=== PATIENT | female | born 1985 | race Two or more races ===

== ENCOUNTER 2021-06-17 08:19 | Inpatient (IN) | payer MEDICAID ==
[~2021-06-17] VITALS: Ht 165.1 cm; Wt 97.3 kg
[2021-06-17] MEDS ORDERED: normal saline 1000ml 1,000 ML IV ONE ×2 (08:35→13:30)
[2021-06-17] MEDS ORDERED: levetiracetam inj 1,000 MG in normal saline 100ml IV soln 90 ML IV ONE (08:35)
[2021-06-17 11:10] LABS: BASOPHILS # (AUTO) 0.1 X10'3 (0-0.2); BASOPHILS % (AUTO) 0.4 % (0-1); EOSINOPHILS % (AUTO) 0 % (0-6); HEMATOCRIT 41.9 % (35.0-45.0); HEMOGLOBIN 14.2 g/dl (12.0-16.0); LYMPHOCYTES # (AUTO) 1.8 X10'3 (1.1-4.8); LYMPHOCYTES % (AUTO) 9.4 % (21-51); MEAN CORPUSCULAR HEMOGLOBIN 29.7 PG (27.0-31.0); MEAN CORPUSCULAR HGB CONC 33.9 g/dL (33.0-36.5); MEAN CORPUSCULAR VOLUME 87.6 FL (78-98); MEAN PLATELET VOLUME 8.2 FL (7.4-10.4); MONOCYTES # (AUTO) 0.8 X10'3 (0-0.9); MONOCYTES % (AUTO) 3.9 % (2-12); NEUTROPHILS # (AUTO) 16.6 X10'3 (1.8-7.7); NEUTROPHILS % (AUTO) 86.3 % (42-75); PLATELET COUNT 330 X10'3 (140-440); RED BLOOD COUNT 4.78 X10'6 (4.20-5.60); RED CELL DISTRIBUTION WIDTH 13.6 % (11.5-14.5); WHITE BLOOD COUNT 19.2 X10'3 (4.5-11.0)
[2021-06-17 11:23] LABS: ALANINE AMINOTRANSFERASE 23 U/L (12-78); ALBUMIN 3.9 G/DL (3.4-5.0); ALKALINE PHOSPHATASE 62 IU/L (46-116); ANION GAP 12 (8-16); ASPARTATE AMINO TRANSFERASE 15 U/L (10-37); BILIRUBIN,TOTAL 0.5 MG/DL (0.1-1.0); BLOOD UREA NITROGEN 23 MG/DL (7-18); BUN/CREATININE RATIO 29.5 (6.6-38.0); CALCIUM 9.1 MG/DL (8.5-10.1); CHLORIDE 108 MMOL/L (99-107); CREATININE 0.78 MG/DL (0.40-0.90); GLUCOSE 130 MG/DL (70-104); SODIUM 143 MMOL/L (135-145); TOTAL PROTEIN 7.9 G/DL (6.4-8.2); eGFR 84 ML/MIN
[2021-06-17 11:24] LABS: POTASSIUM 3.7 MMOL/L (3.5-5.1)
[2021-06-17] MEDS ORDERED: CefTRIAXone 2gm/D5W 50ml BAG 50 ML IV ONE (11:25)
[2021-06-17] MEDS ORDERED: LORazepam 2 mg/ml vial IV ONE ×3 (11:25→15:20)
[2021-06-17] MEDS ORDERED: ketorolac trometh. 30mg/ml inj. IV ONE (11:25)
[2021-06-17 11:33] LABS: BETA HCG,QUANTITATIVE < 1.0 mIU/ml; MAGNESIUM 2.1 MG/DL (1.5-2.4)
[2021-06-17] MEDS ORDERED: vancomycin/NS 1 GM ADD-VANTAGE 250 ML X 1 DOSE IV ONE (12:25)
[2021-06-17 12:42] LABS: CLARITY,URINE SLIGHTLY CLOUDY (Clear); COLOR,URINE YELLOW (Yellow); GLUCOSE, URINE NEGATIVE (Neg); KETONES,URINE TRACE mg/dl (Neg); LEUKOCYTE ESTERASE ,URINE NEGATIVE (Neg); NITRITES, URINE NEGATIVE (Neg); OCCULT BLOOD,URINE NEGATIVE (Neg); PH,URINE 6.5 (4.8-8.0); PROTEIN,URINE TRACE mg/dl (Neg); UROBILINOGEN,URINE 0.2 E.U/dL (0.2-1.0)
[2021-06-17 12:43] LABS: UA COLLECTION TYPE STRAIGHT CATH
[2021-06-17 12:45] LABS: URINE HCG NEGATIVE (NEG)
[2021-06-17 12:50] LABS: URINE AMPHETAMINE SCREEN POSITIVE (Neg); URINE BARBITUATE SCREEN NEGATIVE (Neg); URINE BENZODIAZEPINES SCREEN POSITIVE (Neg); URINE CANNABINOID SCREEN NEGATIVE (Neg); URINE COCAINE SCREEN NEGATIVE (Neg); URINE METHADONE SCREEN NEGATIVE (Neg); URINE OPIATE SCREEN NEGATIVE (Neg); URINE PHENCYCLIDINE SCREEN NEGATIVE (Neg)
[2021-06-17] MEDS ORDERED: buprenorphine/naloxone 8MG-2MG SUBlingual film SL SCH (12:52)
[2021-06-17 12:54] LABS: BACTERIA,URINE FEW /HPF (Neg); COARSE GRANULAR CAST 0-3 /LPF (NEGATIVE); MUCUS STRANDS MANY /LPF (Neg); RBC,URINE 0-2 /HPF (0-2); SQUAMOUS EPITHELIAL CELL,UR MANY /LPF (FEW); WBC,URINE 0-4 /HPF (0-4)
[2021-06-17] MEDS ORDERED: buprenorphine/naloxone 8MG-2MG SUBlingual film SL ONE (13:25)
[2021-06-17] MEDS ORDERED: diphenhydrAMINE 50 mg/ml inj IV ONE (14:50)
[2021-06-17] MEDS ORDERED: magnesium 2GM in 50ml NS 50 ML IV ONE (14:50)
[2021-06-17] MEDS ORDERED: haloperidol lactate 5mg/ml inj IM ONE (14:50)
--- NOTE | 2021-06-17 15:45 | NUR ---
PT CONTINUES TO HAVE NEUROLOGIC CONCERNS DESPITE MEDICATIONS AND INTERVENTIONS. DR. LARSEN AT BEDSIDE WITH RN X1 TO COMPLETE LUMBAR PUNCTURE CONSENT AND PROCEDURE. PT TOLERATED WELL. ALL TUBES X4 LABELLED AND WALKED TO LAB. PT RETURNED TO SUPINE POSITION AND INSTRUCTED TO REMAIN FLAT. NO EVIDENCE OF UNDERSTANDING. WILL MONITOR CLOSELY.
[2021-06-17] MEDS ORDERED: NORMAL SALINE IV STA ×4 (15:51→20:38)
[2021-06-17] MEDS ORDERED: ACYCLOVIR IV STA ×4 (15:51→20:38)
[2021-06-17] MEDS ORDERED: UNABLE TO OBTAIN (16:48)
[2021-06-17 17:01] LABS: GLUCOSE,CSF 86 MG/DL (40-75); TOTAL PROTEIN,CSF 80 MG/DL (15-45)
[2021-06-17] MEDS ORDERED: NO HOME MEDS (17:03)
[2021-06-17 17:20] LABS: APPEARANCE,CSF HAZY; CSF SUPERNATANT COLOR COLORLESS; CSF VOLUME 7 ML; TUBE# COUNTED 1
[2021-06-17 17:22] LABS: APPEARANCE,CSF CLEAR; CSF RBC 350 /CU MM (0); CSF SUPERNATANT COLOR COLORLESS; CSF VOLUME 7 ML; CSF WBC CT 2 /CU MM (0-5); TUBE# COUNTED 4
[2021-06-17 17:23] LABS: CSF RBC 0 /CU MM (0); CSF WBC CT 0 /CU MM (0-5)
[2021-06-17] MEDS ORDERED: potassium Cl 20 mEq SR tablet PO PRN (17:35)
[2021-06-17] MEDS ORDERED: mag hydrox/Alum hydrox/simeth 30ml oral suspension PO PRN (17:35)
[2021-06-17] MEDS ORDERED: acetaminophen 650mg rectal suppository RC PRN (17:35)
[2021-06-17] MEDS ORDERED: HYDROcodone/acetaminophen 5mg/325mg tablet PO PRN (17:35)
[2021-06-17] MEDS ORDERED: bisacodyl 10mg suppository rectal RC PRN (17:35)
[2021-06-17] MEDS ORDERED: diphenhydrAMINE 25mg capsule PO PRN (17:35)
[2021-06-17] MEDS ORDERED: potassium CL 10mEq/100ml bag 100 ML IV PRN (17:35)
[2021-06-17] MEDS ORDERED: magnesium Cl slow-release 64mg tablet PO PRN (17:35)
[2021-06-17] MEDS ORDERED: HYDROcodone/acetaminophen 10/325mg tab PO PRN (17:35)
[2021-06-17] MEDS ORDERED: acetaminophen 325mg tablet PO PRN ×2 (17:35)
[2021-06-17] MEDS ORDERED: ondansetron/PF 4mg/2ml inj IV PRN (17:35)
[2021-06-17] MEDS ORDERED: dextrose 50%-water 50ml dispensing syringe IV PRN (17:35)
[2021-06-17] MEDS ORDERED: magnesium 4gm in 100ml NS 100 ML IV PRN (17:35)
[2021-06-17] MEDS ORDERED: magnesium hydroxide 30ml (MOM) UD suspension PO PRN (17:35)
[2021-06-17] MEDS ORDERED: haloperidol lactate 5mg/ml inj IM PRN (17:35)
[2021-06-17] MEDS ORDERED: haloperidol 5mg tablet PO PRN (17:35)
[2021-06-17] MEDS ORDERED: magnesium 2GM in 50ml NS 50 ML IV PRN (17:35)
--- NOTE | 2021-06-17 18:57 | NUR ---
DR BRYANT EVALUATED PT AT BEDSIDE. I DISCUSSED PT'S OVERALL PRESENTATION WITH DR BRYANT. HE RECOMMENDS CALLING POISON CONTROL FOR POSSIBLE METHAMPHETAMINE POISONING.
--- NOTE | 2021-06-17 19:19 | NUR ---
CALLED POISON CONTROL. RECOMMENDS REPEATING EKG TO MONITOR FOR CHANGES IN QTC LEVELS. ALSO RECOMMENDS TRENDING LACTIC ACID LEVELS AND TO ORDER TYLENOL AND ASPIRIN LEVEL LABS.
--- NOTE | 2021-06-17 19:40 | NUR ---
DR CONNOR HAS EVALUATED PT;'S NEW EKG.
[2021-06-17] MEDS: K and/or MAG REPLACEMENT MC SCH (20:00)
[2021-06-17] MEDS: LORazepam 2 mg/ml vial IV PRN (20:05)
--- NOTE | 2021-06-17 20:08 | NUR ---
CALLED PHARMACY CONCERNING COMPOUNDED ACYCLOVIR I RECIEVED. THEY WILL CALL BACK TO MAKE SURE COMPOUND IS CORRECTLY DOSED.
[2021-06-17] MEDS ORDERED: acyclovir inj 900 MG in normal saline 250ml IV soln 232 ML IV STA (20:41)
--- NOTE | 2021-06-17 21:00 | NUR ---
Patient to be admitted from ER, to room PCU 3012B. I have received report from FILOMENA Matthews, who received report from DETECTIVE BOWLING ALLEY Berna, and had the opportunity to ask questions and assume patient care.
[2021-06-17 21:15] VITALS: BP 133/52
[2021-06-17] MEDS: dextrose 5%-normal saline 1,000 ML IV SCH (21:15)
--- NOTE | 2021-06-17 21:15 | NUR ---
Received pt. from ER at 2114. On admission, pt very drowsy and shaking all over, opens eyes spontaneously, answer question appropriately, moving all extremities, asking for ice chips, tolerated po well. VSS Afebrile, bed in lowest position, call light placed withion easy reach, side rails up x2, POC discussed with pt, unable to assess pt's full understanding. Nasal swab collected, and sent to lab, for MRSA screen. IVF d5 1/2NS infusing via Lt. EJ.
[2021-06-17] MEDS: VANCOmycin 1250MG/NS 250ml Bag 250 ML IV SCH (21:25)
[2021-06-17] MEDS: thiamine 100mg/ml 2ml inj. IV SCH (23:55)
[2021-06-17] MEDS: docusate sod 100mg capsule PO SCH (23:56)
[2021-06-17] MEDS: heparin, porcine 5000 units/ml vial SQ SCH (23:56)
[2021-06-17] MEDS: levetiracetam inj 1,000 MG in normal saline 100ml IV soln 90 ML IV SCH (23:57)
[2021-06-18] MEDS ORDERED: acyclovir inj 1,000 MG in normal saline 250ml IV soln 230 ML IV SCH ×2
--- NOTE | 2021-06-18 00:42 | NUR ---
Pt's Lt foot IV infiltrated Lt. EJ, not flushing , pt has Iv antibiotic to infused, IVF on hold, unable to site a new IV, retail route supervisor informed, will come and start new IV.
--- NOTE | 2021-06-18 01:15 | NUR ---
Production Sampler in pt's room to start a new IV, multiple attempts with no success. Lt. EJ removed as not in place.
[2021-06-18] MEDS: dextrose 5%-normal saline 1,000 ML IV SCH ×4 (01:35→22:17)
[2021-06-18 02:00] VITALS: BP 128/61
--- NOTE | 2021-06-18 02:36 | NUR ---
PAGER ID: [phone] MESSAGE: Sent to Dr. Swartz, RE:Villa Ricajanice Championa-[id number]. LT EJ not working, Lt foot IV infiltrated, Nursing staff and banquet houseperson Dora, made Multiple attempts to place a new IV, not successful. Pt has multiple IVPB Vanco,Acyclovir, IV Keppra, and IVF , to be given. Please advise on next plan of action.
--- NOTE | 2021-06-18 02:45 | NUR ---
Dr. Swartz called floor, states, I cannot help you, you have just told me a story, not getting an IV is not a choice for this pt, Danita Ortiz ordered all the medications, and they have to be given, I cannot order a PICC line as no one is available over the weekend to place a PICC. Call the Tie Binder again or anyone who can place the IV. CN informed. Will call Tie Binder again.
--- NOTE | 2021-06-18 02:59 | NUR ---
PAGER ID: [phone] MESSAGE: Sent to Dr. Swartz Re:Ana Molina, 3012 B, I called the Dressmaker Helper again, regarding placement of a new IV, she states, she has already made multiple attempts, and you need to call ER doctor to put a line for pt, to get all her ordered medications,
--- NOTE | 2021-06-18 03:05 | NUR ---
Dr. Swartz called PCU back, she states, she is not calling ER doctor, let Dr. Smaayoa know in the morning know in the morning,why pt dod not her her ordered IV medications. FILOMENA Matthews and Keymodule Assembly Supervisor Dora informed. FILOMENA Matthews called ER, to see if one of the ER nurses can come and put in a new IV. ROHAN Boo from ER will come.
--- NOTE | 2021-06-18 04:36 | NUR ---
Ema from ER, came to place new IV,with multiple failed attempts.
[2021-06-18 06:00] VITALS: BP 127/51
--- NOTE | 2021-06-18 06:25 | NUR ---
Problems reprioritized. Patient report given, questions answered & plan of care reviewed with RN Galo & RN Abby.Pt has no IV access,day shift RN will inform Dr. Samayoa.
[2021-06-18] MEDS ORDERED: pneumococcal 23-VAL P-sac vacc 25 mcg/0.5ml vial IMVAC ONE (06:35)
[2021-06-18] MEDS: VANCOmycin 1250MG/NS 250ml Bag 250 ML IV SCH ×2 (07:00→19:36)
[2021-06-18] MEDS: K and/or MAG REPLACEMENT MC SCH ×2 (08:00→20:00)
[2021-06-18] MEDS: heparin, porcine 5000 units/ml vial SQ SCH ×2 (08:00→19:37)
[2021-06-18] MEDS: acyclovir inj 1,000 MG in normal saline 250ml IV soln 250 ML IV SCH ×4 (08:00→16:41)
[2021-06-18] MEDS: docusate sod 100mg capsule PO SCH ×2 (08:28→19:37)
[2021-06-18] MEDS: LORazepam 2 mg/ml vial IV PRN ×2 (08:45→19:37)
--- NOTE | 2021-06-18 08:45 | NUR ---
dURING THE MED PASS TRIYING TO PUT A IV ACCESS PATIENT START WITH EPISODE OF SEIZURES. ATIVAN 2MG IM WAS ADMINISTRATED. HR ASSOCIATE WAS NOTIFIED. AFTER THREE TIMES TO TRIED TO PUT THE IV ACCESS WAS FAILED
[2021-06-18 09:00] LABS: ALANINE AMINOTRANSFERASE 33 U/L (12-78); ALBUMIN 3.8 G/DL (3.4-5.0); ALBUMIN/GLOBULIN RATIO 1.1 (1.1-1.5); ALKALINE PHOSPHATASE 57 IU/L (46-116); ANION GAP 14 (8-16); BLOOD UREA NITROGEN 19 MG/DL (7-18); BUN/CREATININE RATIO 44.2 (6.6-38.0); CALCIUM 8.8 MG/DL (8.5-10.1); CHLORIDE 110 MMOL/L (99-107); CHOL/HDL RATIO 4.1 (0.00-4.99); CHOLESTEROL 152 MG/DL (0-200); CREATININE 0.43 MG/DL (0.40-0.90); GLUCOSE 101 MG/DL (70-104); HDL CHOLESTEROL 37 MG/DL (35-60); LDL CHOLESTEROL 97 MG/DL (50-100); MAGNESIUM 2.7 MG/DL (1.5-2.4); SODIUM 145 MMOL/L (135-145); TOTAL CARBON DIOXIDE 20.8 MMOL/L (24-32); TOTAL PROTEIN 7.3 G/DL (6.4-8.2); TRIGLYCERIDES 79 MG/DL (20-135); eGFR > 90 ML/MIN
--- NOTE | 2021-06-18 09:00 | NUR ---
PATIENT PRESENT SECOND EPISODE OF SEIZURES. DR. BRYANT WAS NOTIFIED AND [facility] WAS CALLED.
[2021-06-18] MEDS: levetiracetam inj 1,000 MG in normal saline 100ml IV soln 90 ML IV SCH ×2 (09:18→20:50)
[2021-06-18 09:38] LABS: PHOSPHORUS 3.5 MG/DL (2.3-4.5); POTASSIUM 3.8 MMOL/L (3.5-5.1)
[2021-06-18 09:39] LABS: ASPARTATE AMINO TRANSFERASE 55 U/L (10-37)
[2021-06-18 10:13] LABS: BASOPHILS # (AUTO) 0.1 X10'3 (0-0.2); BASOPHILS % (AUTO) 0.6 % (0-1); EOSINOPHILS % (AUTO) 0 % (0-6); HEMATOCRIT 44.9 % (35.0-45.0); HEMOGLOBIN 14.7 g/dl (12.0-16.0); LYMPHOCYTES # (AUTO) 5.8 X10'3 (1.1-4.8); LYMPHOCYTES % (AUTO) 31.2 % (21-51); MEAN CORPUSCULAR HEMOGLOBIN 29.5 PG (27.0-31.0); MEAN CORPUSCULAR HGB CONC 32.7 g/dL (33.0-36.5); MEAN CORPUSCULAR VOLUME 90.1 FL (78-98); MEAN PLATELET VOLUME 9.5 FL (7.4-10.4); MONOCYTES # (AUTO) 1.7 X10'3 (0-0.9); MONOCYTES % (AUTO) 9.2 % (2-12); PLATELET COUNT 403 X10'3 (140-440); RED BLOOD COUNT 4.98 X10'6 (4.20-5.60); RED CELL DISTRIBUTION WIDTH 13.8 % (11.5-14.5); WHITE BLOOD COUNT 18.6 X10'3 (4.5-11.0)
[2021-06-18 11:00] VITALS: BP 118/57
[2021-06-18] MEDS: thiamine 100mg/ml 2ml inj. IV SCH ×2 (13:00→17:34)
[2021-06-18] MEDS: morphine 2 MG/ML inj. syringe IV PRN ×3 (13:02→15:33)
[2021-06-18 15:00] VITALS: BP 120/54
[2021-06-18 16:38] LABS: ACETAMINOPHEN < 2.0 UG/ML (10-30)
[2021-06-18] MEDS: folic acid 1mg/0.2ml inj IV SCH (17:34)
[2021-06-18 18:00] VITALS: BP 120/54
--- NOTE | 2021-06-18 18:21 | NUR ---
Patient in room PCU 3012. I have received report from ROHAN Mora, and had the opportunity to ask questions and assume patient care. To call ER, to remove Intra osteo IV. Pt has new central line to RT. neck. Pt stable, still shaking all over, Don to gravity drainage. IV Rocephin to be given.
--- NOTE | 2021-06-18 19:05 | NUR ---
Rocephin 1gm IV, not available on floor, message sent to Pharmacy.
[2021-06-18] MEDS: CefTRIAXone/D5W-Rocephin 1gm 50 ML IV SCH (20:00)
--- NOTE | 2021-06-18 20:00 | NUR ---
Pharmacy delivered Rocephin, to PCU, administered as per order.
[2021-06-18 22:00] VITALS: BP 132/66
--- NOTE | 2021-06-18 22:10 | NUR ---
Lt. leg IO IV removed by ROHAN Taylor, from ER.
[2021-06-19 01:30] VITALS: BP 135/62
[2021-06-19] MEDS: LORazepam 2 mg/ml vial IV PRN ×2 (01:33→05:42)
--- NOTE | 2021-06-19 01:34 | NUR ---
TYLENOL sUPP, GIVEN FOR TEMP OF 100.8, WILL CONTINUE TO MONITOR.
[2021-06-19 02:00] VITALS: BP 124/64
[2021-06-19] MEDS: thiamine 100mg/ml 2ml inj. IV SCH ×4 (02:18→20:00)
--- NOTE | 2021-06-19 02:25 | NUR ---
IV Zovirax not available in [facility],message snet to Pharmacy.
--- NOTE | 2021-06-19 02:27 | NUR ---
Called Pharmacy, will call when IV Zovirax is ready.
[2021-06-19] MEDS: acyclovir inj 1,000 MG in normal saline 250ml IV soln 250 ML IV SCH ×2 (03:40→10:47)
--- NOTE | 2021-06-19 03:41 | NUR ---
Pharmacy called PCU, that IV Zovirax is ready, Med picked up, administered as per order.
[2021-06-19 06:00] VITALS: BP 124/64
--- NOTE | 2021-06-19 06:15 | NUR ---
Pt. pulled hayes out, new hayes place, 16fr.
--- NOTE | 2021-06-19 06:25 | NUR ---
Problems reprioritized. Patient report given, questions answered & plan of care reviewed with Abby.
[2021-06-19] MEDS ORDERED: VANCOMYCIN LEVEL IV ONE (06:30)
[2021-06-19 06:35] LABS: ALANINE AMINOTRANSFERASE 32 U/L (12-78); ALBUMIN 3.4 G/DL (3.4-5.0); ALBUMIN/GLOBULIN RATIO 1.1 (1.1-1.5); ALKALINE PHOSPHATASE 49 IU/L (46-116); ANION GAP 11 (8-16); ASPARTATE AMINO TRANSFERASE 31 U/L (10-37); BILIRUBIN,TOTAL 0.9 MG/DL (0.1-1.0); BLOOD UREA NITROGEN 15 MG/DL (7-18); BUN/CREATININE RATIO 17.9 (6.6-38.0); CALCIUM 7.7 MG/DL (8.5-10.1); CHLORIDE 112 MMOL/L (99-107); CREATININE 0.84 MG/DL (0.40-0.90); GLUCOSE 107 MG/DL (70-104); MAGNESIUM 2.2 MG/DL (1.5-2.4); PHOSPHORUS 4.3 MG/DL (2.3-4.5); SODIUM 148 MMOL/L (135-145); TOTAL PROTEIN 6.5 G/DL (6.4-8.2); VANCOMYCIN,TROUGH 10.9 UG/ML (6.0-14.0); eGFR 77 ML/MIN
[2021-06-19 06:48] LABS: POTASSIUM 2.7 MMOL/L (3.5-5.1)
[2021-06-19] MEDS: K and/or MAG REPLACEMENT MC SCH ×2 (07:10→20:01)
--- NOTE | 2021-06-19 07:13 | NUR ---
Critical Kt level 2.7 this am.. Will follow potassium protocol as ordered.
[2021-06-19] MEDS: docusate sod 100mg capsule PO SCH ×2 (07:47→19:57)
[2021-06-19] MEDS: heparin, porcine 5000 units/ml vial SQ SCH ×2 (07:48→19:58)
[2021-06-19] MEDS: CefTRIAXone/D5W-Rocephin 1gm 50 ML IV SCH (07:55)
[2021-06-19] MEDS: VANCOmycin 1250MG/NS 250ml Bag 250 ML IV SCH (08:16)
[2021-06-19] MEDS: folic acid 1mg/0.2ml inj IV SCH (09:52)
[2021-06-19 11:00] VITALS: BP 115/70
[2021-06-19] MEDS: levetiracetam inj 1,000 MG in normal saline 100ml IV soln 90 ML IV SCH ×2 (12:37→20:00)
[2021-06-19 13:11] LABS: BASOPHILS # (AUTO) 0.1 X10'3 (0-0.2); BASOPHILS % (AUTO) 0.5 % (0-1); EOSINOPHILS # (AUTO) 0.2 X10'3 (0-0.9); EOSINOPHILS % (AUTO) 1.9 % (0-6); HEMATOCRIT 37.6 % (35.0-45.0); HEMOGLOBIN 12.5 g/dl (12.0-16.0); LYMPHOCYTES % (AUTO) 23.3 % (21-51); MEAN CORPUSCULAR HEMOGLOBIN 29.6 PG (27.0-31.0); MEAN CORPUSCULAR HGB CONC 33.2 g/dL (33.0-36.5); MEAN PLATELET VOLUME 9.1 FL (7.4-10.4); MONOCYTES # (AUTO) 0.9 X10'3 (0-0.9); MONOCYTES % (AUTO) 6.9 % (2-12); NEUTROPHILS # (AUTO) 8.8 X10'3 (1.8-7.7); NEUTROPHILS % (AUTO) 67.4 % (42-75); PLATELET COUNT 268 X10'3 (140-440); RED BLOOD COUNT 4.22 X10'6 (4.20-5.60); RED CELL DISTRIBUTION WIDTH 13.6 % (11.5-14.5)
[2021-06-19 15:00] VITALS: BP 125/67
[2021-06-19] MEDS ORDERED: LORazepam 1 MG tablet PO PRN (17:35)
[2021-06-19] MEDS ORDERED: LORazepam 2 mg/ml vial IV PRN (17:35)
[2021-06-19 19:02] LABS: BASOPHILS # (AUTO) 0.1 X10'3 (0-0.2); BASOPHILS % (AUTO) 0.7 % (0-1); EOSINOPHILS # (AUTO) 0.7 X10'3 (0-0.9); EOSINOPHILS % (AUTO) 5.4 % (0-6); HEMATOCRIT 37.3 % (35.0-45.0); HEMOGLOBIN 12.7 g/dl (12.0-16.0); LYMPHOCYTES # (AUTO) 3.9 X10'3 (1.1-4.8); LYMPHOCYTES % (AUTO) 30.2 % (21-51); MEAN CORPUSCULAR HEMOGLOBIN 29.9 PG (27.0-31.0); MEAN CORPUSCULAR HGB CONC 34.1 g/dL (33.0-36.5); MEAN CORPUSCULAR VOLUME 87.6 FL (78-98); MEAN PLATELET VOLUME 9.2 FL (7.4-10.4); MONOCYTES # (AUTO) 0.8 X10'3 (0-0.9); NEUTROPHILS # (AUTO) 7.4 X10'3 (1.8-7.7); NEUTROPHILS % (AUTO) 57.7 % (42-75); PLATELET COUNT 284 X10'3 (140-440); RED BLOOD COUNT 4.26 X10'6 (4.20-5.60); RED CELL DISTRIBUTION WIDTH 13.7 % (11.5-14.5); WHITE BLOOD COUNT 12.8 X10'3 (4.5-11.0)
[2021-06-19 19:05] LABS: ALANINE AMINOTRANSFERASE 32 U/L (12-78); ALBUMIN 3.3 G/DL (3.4-5.0); ALKALINE PHOSPHATASE 52 IU/L (46-116); ANION GAP 9 (8-16); ASPARTATE AMINO TRANSFERASE 24 U/L (10-37); BILIRUBIN,TOTAL 0.6 MG/DL (0.1-1.0); BLOOD UREA NITROGEN 11 MG/DL (7-18); BUN/CREATININE RATIO 12.5 (6.6-38.0); CALCIUM 8.2 MG/DL (8.5-10.1); CHLORIDE 109 MMOL/L (99-107); CREATININE 0.88 MG/DL (0.40-0.90); GLUCOSE 116 MG/DL (70-104); SODIUM 144 MMOL/L (135-145); TOTAL CARBON DIOXIDE 25.8 MMOL/L (24-32); TOTAL PROTEIN 6.6 G/DL (6.4-8.2); eGFR 73 ML/MIN
[2021-06-19 19:07] LABS: POTASSIUM 2.5 MMOL/L (3.5-5.1)
[2021-06-19] MEDS: potassium Cl 20 mEq SR tablet PO PRN (20:00)
[2021-06-19 22:00] VITALS: BP 111/65
[2021-06-20] MEDS: potassium Cl 20 mEq SR tablet PO PRN ×2 (00:26→14:59)
[2021-06-20] MEDS: dextrose 5%-normal saline 1,000 ML IV SCH ×2 (01:35→17:35)
[2021-06-20] MEDS: acyclovir inj 1,000 MG in normal saline 250ml IV soln 250 ML IV SCH ×4 (01:39→23:17)
[2021-06-20 02:00] VITALS: BP 126/66
[2021-06-20] MEDS: morphine 2 MG/ML inj. syringe IV PRN ×2 (04:29→12:41)
[2021-06-20 06:00] VITALS: BP 138/72
[2021-06-20] MEDS: heparin, porcine 5000 units/ml vial SQ SCH ×2 (08:00→20:50)
[2021-06-20] MEDS: thiamine 100mg/ml 2ml inj. IV SCH ×2 (08:00→12:14)
[2021-06-20] MEDS: docusate sod 100mg capsule PO SCH ×2 (08:00→20:50)
[2021-06-20] MEDS: folic acid 1mg/0.2ml inj IV SCH (08:00)
[2021-06-20] MEDS: levetiracetam inj 1,000 MG in normal saline 100ml IV soln 90 ML IV SCH ×2 (10:06→20:00)
[2021-06-20] MEDS: CefTRIAXone/D5W-Rocephin 1gm 50 ML IV SCH (10:07)
[2021-06-20 11:00] VITALS: BP 125/76
[2021-06-20 12:51] LABS: BASOPHILS # (AUTO) 0.1 X10'3 (0-0.2); BASOPHILS % (AUTO) 0.5 % (0-1); EOSINOPHILS # (AUTO) 0.7 X10'3 (0-0.9); EOSINOPHILS % (AUTO) 6.7 % (0-6); HEMATOCRIT 35.2 % (35.0-45.0); HEMOGLOBIN 11.9 g/dl (12.0-16.0); LYMPHOCYTES # (AUTO) 3.1 X10'3 (1.1-4.8); LYMPHOCYTES % (AUTO) 28.7 % (21-51); MEAN CORPUSCULAR HGB CONC 33.9 g/dL (33.0-36.5); MEAN CORPUSCULAR VOLUME 88.4 FL (78-98); MEAN PLATELET VOLUME 9.1 FL (7.4-10.4); MONOCYTES # (AUTO) 0.6 X10'3 (0-0.9); MONOCYTES % (AUTO) 5.5 % (2-12); NEUTROPHILS # (AUTO) 6.4 X10'3 (1.8-7.7); NEUTROPHILS % (AUTO) 58.6 % (42-75); PLATELET COUNT 252 X10'3 (140-440); RED BLOOD COUNT 3.99 X10'6 (4.20-5.60); RED CELL DISTRIBUTION WIDTH 13.5 % (11.5-14.5); WHITE BLOOD COUNT 10.8 X10'3 (4.5-11.0)
[2021-06-20 13:10] LABS: ALANINE AMINOTRANSFERASE 28 U/L (12-78); ALBUMIN 3.1 G/DL (3.4-5.0); ALKALINE PHOSPHATASE 52 IU/L (46-116); ANION GAP 10 (8-16); ASPARTATE AMINO TRANSFERASE 14 U/L (10-37); BILIRUBIN,TOTAL 0.4 MG/DL (0.1-1.0); BLOOD UREA NITROGEN 8 MG/DL (7-18); BUN/CREATININE RATIO 11.6 (6.6-38.0); CALCIUM 8.2 MG/DL (8.5-10.1); CHLORIDE 108 MMOL/L (99-107); CREATININE 0.69 MG/DL (0.40-0.90); GLUCOSE 101 MG/DL (70-104); MAGNESIUM 2.1 MG/DL (1.5-2.4); PHOSPHORUS 3.4 MG/DL (2.3-4.5); SODIUM 143 MMOL/L (135-145); TOTAL CARBON DIOXIDE 25.3 MMOL/L (24-32); TOTAL PROTEIN 6.2 G/DL (6.4-8.2); eGFR > 90 ML/MIN
[2021-06-20 13:14] LABS: POTASSIUM 2.8 MMOL/L (3.5-5.1)
--- NOTE | 2021-06-20 14:13 | NUR ---
Met with patient in regards to substance/alcohol use and to see if patient was interested in resources for treatment options. Patient declined and doesn't want help.
[2021-06-20 15:00] VITALS: BP 120/64
[2021-06-20] MEDS ORDERED: potassium Cl 20 mEq SR tablet PO PRN ×2 (20:30)
[2021-06-20] MEDS ORDERED: potassium CL 10mEq/100ml bag 100 ML IV PRN (20:30)
[2021-06-20] MEDS ORDERED: magnesium 4gm in 100ml NS 100 ML IV PRN (20:30)
[2021-06-20] MEDS ORDERED: magnesium 2GM in 50ml NS 50 ML IV PRN (20:30)
[2021-06-20] MEDS ORDERED: magnesium Cl slow-release 64mg tablet PO PRN (20:30)
[2021-06-20] MEDS: K and/or MAG REPLACEMENT MC SCH (20:47)
[2021-06-20] MEDS: lactobacillus rhamnosus 10,000 MMU CELLS/CAPSULE PO SCH (20:50)
[2021-06-20 22:47] LABS: MAGNESIUM 2.2 MG/DL (1.5-2.4); POTASSIUM 3.6 MMOL/L (3.5-5.1)
[2021-06-21] MEDS: dextrose 5%-normal saline 1,000 ML IV SCH ×3 (01:35→17:35)
[2021-06-21 02:24] LABS: BASOPHILS # (AUTO) 0.1 X10'3 (0-0.2); BASOPHILS % (AUTO) 0.8 % (0-1); EOSINOPHILS # (AUTO) 0.3 X10'3 (0-0.9); EOSINOPHILS % (AUTO) 3.4 % (0-6); HEMATOCRIT 34.9 % (35.0-45.0); LYMPHOCYTES # (AUTO) 2.3 X10'3 (1.1-4.8); LYMPHOCYTES % (AUTO) 24.9 % (21-51); MEAN CORPUSCULAR HEMOGLOBIN 30.3 PG (27.0-31.0); MEAN CORPUSCULAR HGB CONC 34.3 g/dL (33.0-36.5); MEAN CORPUSCULAR VOLUME 88.2 FL (78-98); MEAN PLATELET VOLUME 9.5 FL (7.4-10.4); MONOCYTES # (AUTO) 0.5 X10'3 (0-0.9); MONOCYTES % (AUTO) 5.2 % (2-12); NEUTROPHILS # (AUTO) 6.1 X10'3 (1.8-7.7); NEUTROPHILS % (AUTO) 65.7 % (42-75); PLATELET COUNT 271 X10'3 (140-440); RED BLOOD COUNT 3.96 X10'6 (4.20-5.60); RED CELL DISTRIBUTION WIDTH 13.6 % (11.5-14.5); WHITE BLOOD COUNT 9.3 X10'3 (4.5-11.0)
[2021-06-21 02:52] LABS: ALANINE AMINOTRANSFERASE 28 U/L (12-78); ALBUMIN 3.2 G/DL (3.4-5.0); ALBUMIN/GLOBULIN RATIO 1.1 (1.1-1.5); ALKALINE PHOSPHATASE 50 IU/L (46-116); ANION GAP 8 (8-16); ASPARTATE AMINO TRANSFERASE 11 U/L (10-37); BILIRUBIN,TOTAL 0.4 MG/DL (0.1-1.0); BLOOD UREA NITROGEN 5 MG/DL (7-18); BUN/CREATININE RATIO 7.6 (6.6-38.0); CALCIUM 8.4 MG/DL (8.5-10.1); CHLORIDE 110 MMOL/L (99-107); CREATININE 0.66 MG/DL (0.40-0.90); GLUCOSE 114 MG/DL (70-104); PHOSPHORUS 3.1 MG/DL (2.3-4.5); POTASSIUM 3.8 MMOL/L (3.5-5.1); SODIUM 144 MMOL/L (135-145); TOTAL CARBON DIOXIDE 26.4 MMOL/L (24-32); TOTAL PROTEIN 6.1 G/DL (6.4-8.2); eGFR > 90 ML/MIN
[2021-06-21 06:00] VITALS: BP 156/65
[2021-06-21] MEDS ORDERED: VANCOMYCIN LEVEL IV ONE (07:30)
[2021-06-21] MEDS: docusate sod 100mg capsule PO SCH ×2 (07:42→20:00)
[2021-06-21] MEDS: CefTRIAXone/D5W-Rocephin 1gm 50 ML IV SCH (08:00)
[2021-06-21] MEDS: K and/or MAG REPLACEMENT MC SCH ×4 (08:00→19:25)
[2021-06-21] MEDS: acyclovir inj 1,000 MG in normal saline 250ml IV soln 250 ML IV SCH ×3 (08:00→23:39)
[2021-06-21] MEDS: levetiracetam inj 1,000 MG in normal saline 100ml IV soln 90 ML IV SCH ×2 (08:00→20:18)
[2021-06-21] MEDS: lactobacillus rhamnosus 10,000 MMU CELLS/CAPSULE PO SCH ×2 (08:01→20:19)
[2021-06-21] MEDS: heparin, porcine 5000 units/ml vial SQ SCH ×2 (08:02→20:19)
[2021-06-21 10:42] LABS: HIV ANTIBODY 1&2 RAPID NON-REACTIVE (Neg)
[2021-06-21 11:00] VITALS: BP 126/82
[2021-06-21] MEDS: morphine 2 MG/ML inj. syringe IV PRN ×2 (13:47→17:00)
[2021-06-21 15:00] VITALS: BP 128/64
[2021-06-21] MEDS ORDERED: LORazepam 1 MG tablet PO PRN (17:35)
[2021-06-21] MEDS ORDERED: LORazepam 2 mg/ml vial IV PRN (17:35)
[2021-06-21 18:00] VITALS: BP 140/73
[2021-06-21 22:00] VITALS: BP 131/74
[2021-06-21] MEDS ORDERED: VANCOMYCIN 1GM/200ML IVPB 200 ML IV SCH (22:00)
[2021-06-21] MEDS ORDERED: vancomycin/NS 1 GM ADD-VANTAGE 250 ML X 1 DOSE IV SCH (22:00)
[2021-06-22] MEDS: dextrose 5%-normal saline 1,000 ML IV SCH (00:39)
[2021-06-22 02:00] VITALS: BP 126/68
[2021-06-22] MEDS: morphine 2 MG/ML inj. syringe IV PRN (03:39)
[2021-06-22 04:04] LABS: BASOPHILS # (AUTO) 0.1 X10'3 (0-0.2); BASOPHILS % (AUTO) 0.8 % (0-1); EOSINOPHILS # (AUTO) 0.2 X10'3 (0-0.9); EOSINOPHILS % (AUTO) 1.9 % (0-6); HEMATOCRIT 35.4 % (35.0-45.0); HEMOGLOBIN 12.1 g/dl (12.0-16.0); LYMPHOCYTES # (AUTO) 2.5 X10'3 (1.1-4.8); LYMPHOCYTES % (AUTO) 25.5 % (21-51); MEAN CORPUSCULAR HEMOGLOBIN 29.9 PG (27.0-31.0); MEAN CORPUSCULAR VOLUME 87.9 FL (78-98); MEAN PLATELET VOLUME 9.9 FL (7.4-10.4); MONOCYTES # (AUTO) 0.5 X10'3 (0-0.9); MONOCYTES % (AUTO) 5.1 % (2-12); NEUTROPHILS # (AUTO) 6.4 X10'3 (1.8-7.7); NEUTROPHILS % (AUTO) 66.7 % (42-75); PLATELET COUNT 292 X10'3 (140-440); RED BLOOD COUNT 4.03 X10'6 (4.20-5.60); RED CELL DISTRIBUTION WIDTH 13.6 % (11.5-14.5); WHITE BLOOD COUNT 9.6 X10'3 (4.5-11.0)
[2021-06-22 04:36] LABS: ALANINE AMINOTRANSFERASE 26 U/L (12-78); ALBUMIN 3.4 G/DL (3.4-5.0); ALBUMIN/GLOBULIN RATIO 1.1 (1.1-1.5); ALKALINE PHOSPHATASE 53 IU/L (46-116); ANION GAP 13 (8-16); ASPARTATE AMINO TRANSFERASE 11 U/L (10-37); BILIRUBIN,TOTAL 0.3 MG/DL (0.1-1.0); BLOOD UREA NITROGEN 6 MG/DL (7-18); BUN/CREATININE RATIO 9.4 (6.6-38.0); CALCIUM 8.7 MG/DL (8.5-10.1); CHLORIDE 107 MMOL/L (99-107); CREATININE 0.64 MG/DL (0.40-0.90); GLUCOSE 106 MG/DL (70-104); MAGNESIUM 2.1 MG/DL (1.5-2.4); PHOSPHORUS 3.9 MG/DL (2.3-4.5); POTASSIUM 3.5 MMOL/L (3.5-5.1); SODIUM 143 MMOL/L (135-145); TOTAL CARBON DIOXIDE 23.5 MMOL/L (24-32); TOTAL PROTEIN 6.4 G/DL (6.4-8.2); eGFR > 90 ML/MIN
[2021-06-22 06:00] VITALS: BP 137/65
[2021-06-22] MEDS ORDERED: thiamine 100mg tablet PO SCH (08:00)
[2021-06-22] MEDS: K and/or MAG REPLACEMENT MC SCH ×2 (08:00)
[2021-06-22] MEDS: docusate sod 100mg capsule PO SCH (08:00)
[2021-06-22] MEDS ORDERED: folic acid 1mg tablet PO SCH (08:00)
[2021-06-22] MEDS: heparin, porcine 5000 units/ml vial SQ SCH (08:04)
[2021-06-22] MEDS: lactobacillus rhamnosus 10,000 MMU CELLS/CAPSULE PO SCH (08:05)
[2021-06-22] MEDS: levetiracetam inj 1,000 MG in normal saline 100ml IV soln 90 ML IV SCH (08:09)
[2021-06-22] MEDS: CefTRIAXone/D5W-Rocephin 1gm 50 ML IV SCH (08:11)
[2021-06-22] MEDS: acyclovir inj 1,000 MG in normal saline 250ml IV soln 250 ML IV SCH (08:35)
[2021-06-22] MEDS ORDERED: THIA50TA10 PO (09:36)
[2021-06-22] MEDS ORDERED: LACT1CAP26 PO (09:36)
[2021-06-22] MEDS ORDERED: CEFD300C3 PO (09:36)
[2021-06-22] MEDS ORDERED: FOLI0.4T6 PO (09:36)
[2021-06-22] MEDS ORDERED: KEP500T PO (09:36)
--- NOTE | 2021-06-22 10:29 | NUR ---
Initial: Pt admit dx encephalopathy and meth overdose per EMR. PO intake ~73% of regular meals, meeting estimated nutritional needs. A&O x 3 now and able to feed self per documentation. Also receiving D5NS at 125ml/hr providing additional 510kcals/day. LBM 06/21, receiving routine bowel care. No nutrition intervention at this time. Will continue to monitor. Recommendations: 1. Continue regular diet as tolerated 2. Bowel care per Rx 3. Weekly wt Addendum: 06/22/21 at 1030 by Yfn Monahan Principal Technical Architect RD Amended: Links added. Addendum: 06/22/21 at [address] I have reviewed assessment by environmental health and safety intern
[2021-06-22 11:00] VITALS: BP 121/52
--- NOTE | 2021-06-22 16:16 | NUR ---
Discharge Teaching and Instructions given, Instructed the importance of compliance with home medication and keeping scheduled MD appointments, Informed patient that prescriptions are at [facility] electronically sent per MD. Central Line removed, site without complications-Pressure dressing applied.Telemetry discontinued and removed. Patient denies belongings and states will bring clothing to wear home.Denies any complaints of pain or discomforts, Questions answered.Patient to discharge accompanied per to personal vehicle.
[2021-06-22] MEDS ORDERED: VANCOMYCIN LEVEL IV ONE (21:30)
[2021-06-23 17:10] LABS: CRYPTOCOCCUS ANTIGEN, CSF Negative (Negative)
== END 2021-06-22 17:01 | disposition home or self-care (01) | DRG 812 ==
LOC: ER 08:19 → ED HOLD 17:36 → EDBEDREQ 19:11 → PCU 3S 21:20
PROVIDERS: ADMIT Family Medicine; ATTEND Family Medicine
PROC: 009U3ZX Drainage of Spinal Canal, Percutaneous Approach, Diagnostic (ICD-10-PCS; principal; 2021-06-17)
PROC: 02HV33Z Insertion of Infusion Device into Superior Vena Cava, Percutaneous Approach (ICD-10-PCS; 2021-06-18)
PROC: B548ZZA Ultrasonography of Superior Vena Cava, Guidance (ICD-10-PCS; 2021-06-18)
PROC: 0UJH7ZZ Inspection of Vagina and Cul-de-sac, Via Natural or Artificial Opening (ICD-10-PCS; 2021-06-18)
PROC: 4A10X4Z Monitoring of Central Nervous Electrical Activity, External Approach (ICD-10-PCS; 2021-06-20)
DX: T43.621A Poisoning by amphetamines, accidental (unintentional), initial encounter (principal); G92.9 Unspecified toxic encephalopathy; R56.9 Unspecified convulsions; D72.829 Elevated white blood cell count, unspecified; F15.129 Other stimulant abuse with intoxication, unspecified; Z20.822 Contact with and (suspected) exposure to COVID-19; F11.13 Opioid abuse with withdrawal; E87.6 Hypokalemia; F15.13 Other stimulant abuse with withdrawal; Y92.89 Other specified places as the place of occurrence of the external cause; Z88.0 Allergy status to penicillin
CPT/HCPCS: 36415; 70450; 70551; 71045; 80053; 80061; 80202; 80305; 80329; 81001; 81025; 82945; 82948; 83036; 83605; 83735; 84100; 84132; 84145; 84157; 84443; 84702; 85025; 85730; 86592; 86617; 86703; 86788; 86789; 87015; 87040; 87070; 87210; 87529; 87635; 87899; 89051; 92508; 92616; 93005; 93308; 95816; 96361; 96365; 96366; 96367; 96368; 96372; 96375; 96376; 97530; 99285; C9803; G0378; J0133; J0696; J1200; J1630; J1644; J1885; J1953; J2060; J2270; J3370; J3411; J3475; J3480; J3490; J7030; J7042; J7050

== ENCOUNTER 2022-01-12 19:38 | Emergency (ER) | payer MEDICAID ==
[~2022-01-12] VITALS: Ht 162.6 cm; Wt 77.2 kg
[~2022-01-12 19:38] MED LIST: KEP500T PO; LACT1CAP26 PO; THIA50TA10 PO
--- NOTE | 2022-01-12 21:01 | NUR ---
lab attempted to draw pt x3 without success
[2022-01-12 21:31] LABS: URINE HCG NEGATIVE (NEG)
[2022-01-12 21:38] LABS: CLARITY,URINE CLEAR (Clear); COLOR,URINE YELLOW (Yellow); GLUCOSE, URINE 100 mg/dl (Neg); KETONES,URINE NEGATIVE (Neg); LEUKOCYTE ESTERASE ,URINE NEGATIVE (Neg); NITRITES, URINE NEGATIVE (Neg); OCCULT BLOOD,URINE NEGATIVE (Neg); PROTEIN,URINE TRACE mg/dl (Neg); UROBILINOGEN,URINE 0.2 E.U/dL (0.2-1.0)
[2022-01-12 21:47] LABS: ALANINE AMINOTRANSFERASE 80 U/L (12-78); ALBUMIN 3.4 G/DL (3.4-5.0); ALBUMIN/GLOBULIN RATIO 0.8 (1.1-1.5); ALKALINE PHOSPHATASE 83 IU/L (46-116); ANION GAP 12 (8-16); ASPARTATE AMINO TRANSFERASE 29 U/L (10-37); BILIRUBIN,TOTAL 0.2 MG/DL (0.1-1.0); BLOOD UREA NITROGEN 15 MG/DL (7-18); BUN/CREATININE RATIO 20.5 (6.6-38.0); CALCIUM 8.6 MG/DL (8.5-10.1); CHLORIDE 105 MMOL/L (99-107); CREATININE 0.73 MG/DL (0.40-0.90); GLUCOSE 139 MG/DL (70-104); POTASSIUM 3.5 MMOL/L (3.5-5.1); SODIUM 138 MMOL/L (135-145); TOTAL CARBON DIOXIDE 20.8 MMOL/L (24-32); TOTAL PROTEIN 7.7 G/DL (6.4-8.2); eGFR 90 ML/MIN
[2022-01-12 21:48] LABS: URINE AMPHETAMINE SCREEN NEGATIVE (Neg); URINE BARBITUATE SCREEN NEGATIVE (Neg); URINE BENZODIAZEPINES SCREEN NEGATIVE (Neg); URINE CANNABINOID SCREEN NEGATIVE (Neg); URINE COCAINE SCREEN NEGATIVE (Neg); URINE METHADONE SCREEN NEGATIVE (Neg); URINE OPIATE SCREEN NEGATIVE (Neg); URINE PHENCYCLIDINE SCREEN NEGATIVE (Neg)
[2022-01-12 21:56] LABS: MAGNESIUM 2.2 MG/DL (1.5-2.4)
[2022-01-12 21:59] LABS: UA COLLECTION TYPE CLN CATCH MIDSTREAM
[2022-01-12 21:59] LABS: ETHANOL < 0.010 GM/DL (0.0-0.010)
[2022-01-12 22:06] LABS: BACTERIA,URINE FEW /HPF (Neg); RBC,URINE 0-2 /HPF (0-2); SQUAMOUS EPITHELIAL CELL,UR FEW /LPF (FEW); WBC,URINE 0-4 /HPF (0-4)
[2022-01-12] MEDS ORDERED: diphenhydrAMINE 50 mg/ml inj IV ONE (22:15)
--- NOTE | 2022-01-12 22:17 | NUR ---
NOTIFIED DR STAPLES OF THE DIFFICULTY STARTING IV . THIS RECORDER ATTEMPTED X3 WITHOUT RESULTS . LONI GAGNON TO ATTEMTP IV START WITH THE ASSSITANCE OF AN US MACHINE . LABS STILL WAITINBG TO BE DRAWN . CONTACTED PHARM TO CHANGE KEPPRA DOSE TIMES NEEDING TO B FOR NOW
[2022-01-12] MEDS ORDERED: levetiracetam inj 1,000 MG in normal saline 100ml IV soln 100 ML IV SCH (22:21)
[2022-01-12 22:40] LABS: BASOPHILS # (AUTO) 0.1 X10'3 (0-0.2); BASOPHILS % (AUTO) 0.5 % (0-1); EOSINOPHILS # (AUTO) 0.1 X10'3 (0-0.9); EOSINOPHILS % (AUTO) 0.5 % (0-6); HEMATOCRIT 39.2 % (35.0-45.0); HEMOGLOBIN 13.2 g/dl (12.0-16.0); LYMPHOCYTES # (AUTO) 1.9 X10'3 (1.1-4.8); LYMPHOCYTES % (AUTO) 18.3 % (21-51); MEAN CORPUSCULAR HEMOGLOBIN 29.6 PG (27.0-31.0); MEAN CORPUSCULAR HGB CONC 33.7 g/dL (33.0-36.5); MEAN CORPUSCULAR VOLUME 87.8 FL (78-98); MEAN PLATELET VOLUME 8.2 FL (7.4-10.4); MONOCYTES # (AUTO) 0.8 X10'3 (0-0.9); MONOCYTES % (AUTO) 7.6 % (2-12); NEUTROPHILS # (AUTO) 7.7 X10'3 (1.8-7.7); NEUTROPHILS % (AUTO) 73.1 % (42-75); PLATELET COUNT 273 X10'3 (140-440); RED BLOOD COUNT 4.47 X10'6 (4.20-5.60); RED CELL DISTRIBUTION WIDTH 14.5 % (11.5-14.5); WHITE BLOOD COUNT 10.6 X10'3 (4.5-11.0)
[2022-01-12] MEDS ORDERED: KEP500T PO (23:19)
--- NOTE | 2022-01-12 23:22 | NUR ---
CALLED [facility] FOR PT TRANSPORT...ETA 10MIN
[2022-01-12 23:33] VITALS: BP 132/78
== END 2022-01-12 23:37 | disposition home or self-care (01) ==
LOC: ER 19:38
DX: R56.9 Unspecified convulsions (principal)
CPT/HCPCS: 36415; 71045; 80053; 80305; 80320; 81001; 81025; 82140; 82948; 83735; 84443; 84484; 85025; 93005; 96374; 96375; 99285; J1200; J1953; J3490; A4615; A4620; A6258

== ENCOUNTER 2023-09-01 20:23 | Emergency (ER) | payer MEDICAID ==
[~2023-09-01] VITALS: Ht 162.6 cm; Wt 81.8 kg
[2023-09-01 20:26] VITALS: BP 148/95; PULSE 99; RESP 16; TEMP 98.5; O2SAT 99
[2023-09-01] MEDS ORDERED: CHLO473M2 PO (21:25)
[2023-09-01] MEDS ORDERED: CLIN-143 PO (21:25)
[2023-09-01] MEDS ORDERED: IBUP-1986 PO (21:25)
[2023-09-01] MEDS: clindamycin 150mg capsule PO ONE (21:36)
== END 2023-09-01 21:46 | disposition home or self-care (01) ==
LOC: ER 20:23
DX: K04.7 Periapical abscess without sinus (principal); Z88.0 Allergy status to penicillin; Z79.899 Other long term (current) drug therapy; Z79.2 Long term (current) use of antibiotics; Z79.1 Long term (current) use of non-steroidal anti-inflammatories (NSAID)
CPT/HCPCS: 99283

== ENCOUNTER 2023-12-18 15:21 | Emergency (ER) | payer MEDICAID ==
[~2023-12-18] VITALS: Ht 162.6 cm; Wt 94.9 kg
[~2023-12-18 15:21] MED LIST changes: +CHLO473M2 PO; +IBUP-1986 PO
[2023-12-18 15:41] VITALS: TEMP 98.2
[2023-12-18] MEDS: levetiracetam inj 500 MG in normal saline 100ml IV soln 100 ML IV ONE (16:41)
[2023-12-18] MEDS ORDERED: LEVE500T12 PO (16:50)
[2023-12-18 17:04] VITALS: BP 105/82; PULSE 57; RESP 18; O2SAT 98
== END 2023-12-18 17:18 | disposition home or self-care (01) ==
LOC: EEVIPCON 15:21 → ER 15:21
DX: G40.909 Epilepsy, unspecified, not intractable, without status epilepticus (principal); R51.9 Headache, unspecified; Z88.0 Allergy status to penicillin; Z79.899 Other long term (current) drug therapy; Z79.1 Long term (current) use of non-steroidal anti-inflammatories (NSAID); Z79.2 Long term (current) use of antibiotics
CPT/HCPCS: 70450; 72125; 93005; 96374; 99285; J1953

== ENCOUNTER 2024-02-05 14:45 | Emergency (ER) | payer MEDICAID ==
[~2024-02-05] VITALS: Ht 162.6 cm; Wt 81.8 kg
[~2024-02-05 14:45] MED LIST changes: +LEVE500T12 PO
[2024-02-05 14:56] VITALS: BP 152/75; PULSE 85; RESP 18; O2SAT 100
[2024-02-05] MEDS ORDERED: HYDR-3965 PO (15:25)
[2024-02-05] MEDS ORDERED: AMOX-580 PO (15:25)
[2024-02-05 15:52] VITALS: TEMP 98
== END 2024-02-05 15:54 | disposition home or self-care (01) ==
LOC: ER 14:46
DX: K04.7 Periapical abscess without sinus (principal); Z88.0 Allergy status to penicillin; Z79.899 Other long term (current) drug therapy; Z79.1 Long term (current) use of non-steroidal anti-inflammatories (NSAID)
CPT/HCPCS: 99283

== ENCOUNTER 2025-02-05 08:51 | Outpatient (CLI) | payer MEDICAID ==
[2025-02-05 09:44] LABS: MEAN PLATELET VOLUME 8.8 FL (7.4-10.4); RED CELL DISTRIBUTION WIDTH 12.6 % (11.5-14.5)
[2025-02-05 10:04] LABS: CHOL/HDL RATIO 5.7 (0.00-4.99); CREATININE 0.72 MG/DL (0.40-0.90); LDL CHOLESTEROL 163 MG/DL (50-100); TOTAL CARBON DIOXIDE 25.8 MMOL/L (24-32); eGFR 90 ML/MIN
== END 2025-02-05 23:59 | disposition home or self-care (01) ==
LOC: LAB 08:51
DX: F32.A Depression, unspecified (principal)
CPT/HCPCS: 36415; 80053; 80061; 82306; 83036; 84439; 84443; 85025